=== PATIENT | male | born 1980 | race Caucasian/White ===

== ENCOUNTER 2016-09-17 21:01 | Emergency (ER) | payer OTHER ==
[~2016-09-17] VITALS: Ht 182.9 cm; Wt 98.9 kg
[2016-09-17 22:31] LABS: ABSOLUTE BASOPHIL COUNT 0 /CUMM (0.0-0.2); ABSOLUTE EOSINOPHIL COUNT 0.2 /CUMM (0.0-0.7); ABSOLUTE GRANULOCYTE CT 5.7 /CUMM (1.4-6.5); ABSOLUTE LYMPH COUNT 1.8 /CUMM (1.2-3.4); ABSOLUTE MONOCYTE COUNT 0.4 /CUMM (0.10-0.60); BASOPHIL % 0.4 % (0.0-2.0); EOSINOPHIL % 2.4 % (0-5); GRANULOCYTE % 69.7 % (42.2-75.2); HEMATOCRIT 46.9 % (42-52); MEAN CORPUSCULAR HGB 29.4 PG (27.0-31.0); MEAN CORPUSCULAR HGB CONC 34.2 G/DL (33.0-37.0); MEAN PLATELET VOLUME 9.2 FL (7.4-10.4); PLATELET COUNT 190 /CUMM (130-400); RBC DISTRIBUTION WIDTH 12.4 % (11.5-14.5); RED BLOOD CELL CT 5.45 /CUMM (4.70-6.10); WHITE BLOOD CELL COUNT 8.2 /CUMM (4.8-10.8)
--- NOTE | 2016-09-17 22:43 | RADIOLOGY REPORT ---
EXAMINATION: XR PORTABLE CHEST CLINICAL INFORMATION: Chest pain. COMPARISON: None TECHNIQUE: Portable AP view of the chest was obtained. FINDINGS: No significant abnormality is noted involving the heart, lungs, mediastinum, bony thorax or soft tissues. IMPRESSION: Unremarkable examination.
--- NOTE | 2016-09-17 22:54 | ED CARDIAC/CP/PALPITATIONS ---
History of Present Illness General Chief Complaint: Chest Pain Stated Complaint: CP Source: patient Exam Limitations: no limitations Vital Signs & Intake/Output Vital Signs & Intake/Output Vital Signs Date Time Temp Pulse Resp B/P Pulse O2 O2 Flow FiO2 Ox Delivery Rate 09/18 0008 98.4 88 18 127/75 98 Room Air 09/17 2150 Room Air 09/17 2114 99.1 86 18 138/94 97 Room Air ED Intake and Output 09/18 0000 09/17 1200 Intake Total Output Total 40 Balance -40 Output, Urine 40 Patient 218 lb Weight Allergies Coded Allergies: No Known Allergies (09/17/16) Reconcile Medications Baclofen 10 MG TABLET 1-2 TAB PO TID PRN muscle strain Ibuprofen 600 MG TABLET 1 TAB PO Q6PRN PRN pain with food Core Measure Meds Pre-Hospital aspirin Triage Note: PT TO TRIAGE WITH C/O CONSTANT LEFT SIDED CHEST PAIN 01/21 AND CHEST TIGHTNESS S/P EXSERCISED THIS AFTERNOON. PT TOOK ASPIRINE 81MG WITH SLIGHT CHEST PAIN RELIEF. PT DENIES SOB,ABD PAIN,N/V/D. HX OF ASTHMA. VSS. EKG DONE IN [facility] BY JOSUE GIANG. Triage Nurses Notes Reviewed? yes Onset: Afternoon Duration: hour(s):, constant, continues in ED Timing: recent history Quality/Severity: moderate, pressure Location: substernal Radiation: no radiation Activities at Onset: activity Prior Chest Pain/Card Workup: echocardiography, stress test (negative for ASCAD) Nitro Today/Relief: no nitro taken today Aspirin Today: 81 mg x 1, provided at home Associated Symptoms: anxiety HPI: 10 hours prior to admission after doing upper body weight exercises patient complains of left-sided chest pain described as pressure nonradiating constant moderate to severe associated with anxiety. He took baby aspirin and a water pill given to him by his sister. He denies fever chills nausea vomiting diarrhea abdominal pain shortness of breath headache dysuria rash bleeding. Past History Travel History Traveled to [place] past 21 day No Medical History Any Pertinent Medical History? see below for history Respiratory: asthma Surgical History Surgical History: non-contributory Psychosocial History What is your primary language [place] Tobacco Use: Never used ETOH Use: occasional use Illicit Drug Use: denies illicit drug use Family History Hx Contributory? No Review of Systems Review of Systems Constitutional: Reports: no symptoms. EENTM: Reports: no symptoms. Respiratory: Reports: no symptoms. Cardiovascular: Reports: see HPI, chest pain. GI: Reports: no symptoms. Genitourinary: Reports: no symptoms. Musculoskeletal: Reports: no symptoms. Skin: Reports: no symptoms. Neurological/Psychological: Reports: see HPI, anxiety. Hematologic/Endocrine: Reports: no symptoms. Immunologic/Allergic: Reports: no symptoms. All Other Systems: Reviewed and Negative Physical Exam Physical Exam General Appearance: well developed/nourished, alert, awake, anxious, mild distress Head: atraumatic, normal appearance Eyes: Bilateral: normal appearance. Ears, Nose, Throat: normal pharynx, normal ENT inspection Neck: normal inspection, supple, full range of motion, no midline tenderness Respiratory: normal breath sounds, chest non-tender, no respiratory distress, quiet respiration, lungs clear Cardiovascular: regular rate/rhythm, normal peripheral pulses, norml femoral pulses equa Peripheral Pulses: 4+ carotid (R), 4+ carotid (L) Gastrointestinal: normal bowel sounds, soft, non-tender, no organomegaly Back: normal inspection, normal range of motion Extremities: normal inspection, normal capillary refill, normal range of motion, no edema Neurologic/Psych: no motor/sensory deficits, awake, alert, oriented x 3, normal gait, normal mood/affect, alliances consultant II-XII nml as tested Reflexes: 2+: bicep (R), bicep (L). Skin: intact, normal color, warm/dry Lymphatic: no anterior cervical [place] Core Measures ACS in differential dx? Yes Severe Sepsis Present: No Septic Shock Present: No Progress Differential Diagnosis: AMI, atrial fibrillation, hyperkalemia, hypovolemia, musculoskeletal pain, pneumonia Plan of Care: Orders Procedure Date/time Status TROPONIN LEVEL 09/17 2153 Complete COMPREHENSIVE METABOLIC PANEL 09/17 2153 Complete CBC WITHOUT DIFFERENTIAL 09/17 2153 Complete EKG 09/17 2102 Active Laboratory Tests 09/17/162215: Anion Gap 12, Estimated GFR 58 L, BUN/Creatinine Ratio 17.1, Glucose 102 H, Calcium 9.5, Total Bilirubin 0.8, AST 36, ALT 33, Alkaline Phosphatase 121, Troponin I < 0.01, Total Protein 7.9, Albumin 4.5, Globulin 3.4, Albumin/ Globulin Ratio 1.3, CBC w Diff NO MAN DIFF REQ, RBC 5.45, MCV 86.0, MCH 29.4, RDW 12.4, MPV 9.2, Gran % 69.7, Lymphocytes % 22.4, Monocytes % 5.1, Eosinophils % 2.4, Basophils % 0.4, Absolute Granulocytes 5.7, Absolute Lymphocytes 1.8, Absolute Monocytes 0.4, Absolute Eosinophils 0.2, Absolute Basophils 0, PUBS MCHC 34.2 Diagnostic Imaging: Viewed by Me: Radiology Read. Discussed w/RAD: Radiology Read. CXR Impression: no acute abnormality Initial ED EKG: normal axis, normal intervals, normal p-waves, normal QRS complex, normal sinus rhythm, no ST T wave changes Rhythm Strip: normal sinus rhythm Departure Departure Time of Disposition: 2340 Disposition: HOME OR SELF CARE Condition: Stable Clinical Impression Primary Impression: Chest pain syndrome Referrals: TIFF MUÑOZ,LUCINDA Gregory (PCP/Family) Departure Forms: Customer Survey General Discharge Information Prescriptions: Current Visit Scripts Ibuprofen 1 TAB PO Q6PRN PRN pain #50 TAB with food Baclofen 1-2 TAB PO TID PRN muscle strain #30 TAB Critical Care Note Critical Care Note Critical Care Time: non-applicable
[2016-09-17] MEDS ORDERED: IBUPROFEN600 M1 PO (23:42)
[2016-09-17] MEDS ORDERED: BACLOFEN10 M1 PO (23:42)
[2016-09-18 00:08] VITALS: BP 127/75
== END 2016-09-18 00:09 ==
LOC: ERH 21:01
PROVIDERS: Emergency Medicine
DX: R07.89 Other chest pain (principal)
CPT/HCPCS: 93005; 93010; 96374; J1885